=== PATIENT | female | born 1995 | race Caucasian/White ===

== ENCOUNTER 2016-10-06 09:29 | Emergency (ER) | payer MEDICAID, SELFPAY | END 2016-10-06 10:10 | disposition home or self-care (01) | LOC: MADERS 09:29 | DX: O03.9 Complete or unspecified spontaneous abortion without complication (principal); Z3A.01 Less than 8 weeks gestation of pregnancy; Z87.891 Personal history of nicotine dependence | CPT/HCPCS: 99283 ==

== ENCOUNTER 2016-12-11 18:46 | Emergency (ER) | payer MEDICAID, OTHER | END 2016-12-11 20:10 | disposition short-term general hospital (02) | LOC: MADERS 18:46 | DX: O99.89 Other specified diseases and conditions complicating pregnancy, childbirth and the puerperium (principal); R10.11 Right upper quadrant pain; Z87.891 Personal history of nicotine dependence; Z3A.09 9 weeks gestation of pregnancy | CPT/HCPCS: 99284 ==

== ENCOUNTER 2017-01-31 10:44 | Emergency (ER) | payer MEDICAID, OTHER ==
[2017-01-31 11:42] LABS: Clarity Clear (Clear)
[2017-01-31 11:43] LABS: Bilirubin Negative (Negative); Blood, Urine Negative (Negative); Glucose, Urine (Dipstick) Negative (Negative); Leukocyte Negative (Negative); Nitrite Negative (Negative); Protein, Urine (Dipstick) Negative (Neg-Trace); Specific Gravity, Urine 1.015 (1.005-1.030); Urobilinogen 0.2 mg/dL (0.2-1.0); pH, Urine 7.5 (5.0-9.0)
== END 2017-01-31 12:10 | disposition home or self-care (01) ==
LOC: MADERS 10:44
DX: O99.89 Other specified diseases and conditions complicating pregnancy, childbirth and the puerperium (principal); R39.15 Urgency of urination; Z3A.21 21 weeks gestation of pregnancy; Z87.891 Personal history of nicotine dependence
CPT/HCPCS: 81003; 99283

== ENCOUNTER 2017-03-18 17:11 | Emergency (ER) | payer MEDICAID, OTHER | END 2017-03-18 21:18 | disposition home or self-care (01) | LOC: MADERS 17:11 | DX: O99.613 Diseases of the digestive system complicating pregnancy, third trimester (principal); J20.9 Acute bronchitis, unspecified; Z3A.28 28 weeks gestation of pregnancy | CPT/HCPCS: 99283 ==

== ENCOUNTER 2017-10-09 13:37 | Emergency (ER) | payer OTHER, SELFPAY ==
[2017-10-09 14:41] LABS: Bilirubin Negative (Negative); Blood, Urine Negative (Negative); Clarity Hazy (Clear); Glucose, Urine (Dipstick) Negative (Negative); Leukocyte Trace (Negative); Nitrite Negative (Negative); Protein, Urine (Dipstick) Negative (Neg-Trace); Urobilinogen 0.2 mg/dL (0.2-1.0); pH, Urine 5.5 (5.0-9.0)
[2017-10-09 14:43] LABS: Bacteria/HPF 1+ HPF (None Seen); RBC/HPF 0-3 HPF (0-3)
[2017-10-09 14:44] LABS: Pregnancy Test - Urine (BHCG) Negative (Negative); Pregu Control Background? CLEAR/WHITE (CLR/WHITE); Pregu Control Bar Appear? YES (CONTROL BAR)
== END 2017-10-09 15:10 | disposition home or self-care (01) ==
LOC: MADERS 13:37
DX: S30.861A Insect bite (nonvenomous) of abdominal wall, initial encounter (principal); Z87.891 Personal history of nicotine dependence; W57.XXXA Bitten or stung by nonvenomous insect and other nonvenomous arthropods, initial encounter
CPT/HCPCS: 81003; 81015; 81025; 99282

== ENCOUNTER 2018-04-01 21:16 | Emergency (ER) | payer BC, SELFPAY ==
[2018-04-01] MEDS ORDERED: Acetaminophen 500 MG TAB ONE (21:30)
== END 2018-04-01 21:55 | disposition home or self-care (01) ==
LOC: MADERS 21:16
DX: R56.9 Unspecified convulsions (principal); Z87.891 Personal history of nicotine dependence
CPT/HCPCS: 93005

== ENCOUNTER 2018-06-16 19:17 | Emergency (ER) | payer SELFPAY ==
--- NOTE | 2018-06-16 20:11 | RAD ---
LEFT ANKLE TWO VIEW: History: Injury. Twisted ankle. Comparison: None. FINDINGS: No acute fracture or malalignment. Soft tissues are unremarkable. No lateral talar shift. IMPRESSION: No acute fracture or malalignment. POS: [id number]
== END 2018-06-16 20:06 | disposition home or self-care (01) ==
LOC: MADERS 19:17
DX: S93.402A Sprain of unspecified ligament of left ankle, initial encounter (principal); Z71.6 Tobacco abuse counseling; Z87.891 Personal history of nicotine dependence; X50.1XXA Overexertion from prolonged static or awkward postures, initial encounter
CPT/HCPCS: 99406

== ENCOUNTER 2018-06-16 23:24 | Emergency (ER) | payer SELFPAY ==
[2018-06-16] MEDS ORDERED: Ondansetron ODT 4 MG TAB ONE (23:34)
== END 2018-06-16 23:40 | disposition home or self-care (01) ==
LOC: MADERS 23:24
DX: R56.9 Unspecified convulsions (principal); Z87.891 Personal history of nicotine dependence
CPT/HCPCS: 99283; Q0162

== ENCOUNTER 2018-09-24 20:19 | Emergency (ER) | payer BC, SELFPAY ==
[2018-09-24] MEDS ORDERED: Rabies Vaccine Human 2.5 UNITS VIAL ONE (20:42)
== END 2018-09-24 22:20 | disposition home or self-care (01) ==
LOC: MADERS 20:19
DX: S61.251A Open bite of left index finger without damage to nail, initial encounter (principal); F17.210 Nicotine dependence, cigarettes, uncomplicated; Z23 Encounter for immunization; W55.81XA Bitten by other mammals, initial encounter
CPT/HCPCS: 90376; 90471; 90675; 96372

== ENCOUNTER 2018-09-27 15:52 | Emergency (ER) | payer BC ==
[~2018-09-27 15:52] MED LIST: Rabies Vaccine Human 2.5 UNITS VIAL ONE
== END 2018-09-27 15:53 | disposition home or self-care (01) ==
LOC: MADER/OP 15:52
DX: S61.251A Open bite of left index finger without damage to nail, initial encounter (principal); Z23 Encounter for immunization
CPT/HCPCS: 90675; 96372